=== PATIENT | female | born 1965 | race Caucasian/White ===

== ENCOUNTER 2016-12-20 11:12 | Emergency (ER) | payer OTHER ==
[~2016-12-20] VITALS: Ht 165.1 cm; Wt 149.7 kg
--- NOTE | 2016-12-20 11:30 | ED GI/GU/ABDOMINAL COMPLAINT ---
History of Present Illness General Chief Complaint: Nausea, Vomiting, Diarrhea Stated Complaint: N/V/D X 4 DAYS Source: patient, family, old records Exam Limitations: no limitations Vital Signs & Intake/Output Vital Signs & Intake/Output Vital Signs Date Time Temp Pulse Resp B/P B/P Pulse O2 O2 Flow FiO2 Mean Ox Delivery Rate 12/20 1321 96.1 81 18 132/73 97 Room Air 12/20 1115 96.4 88 20 133/83 96 Room Air Allergies Coded Allergies: citric acid (Intermediate, rash 12/20/16) Penicillins (UNKNOWN 12/20/16) aspirin (bleed 12/20/16) Reconcile Medications Dulaglutide (Trulicity) 0.75 MG/0.5 ML PEN.INJCTR 1 INJ SC QFRI DM (Reported) Hydrochlorothiazide 50 MG TABLET 1 TAB PO QPM WATER RETENTION (Reported) Metoprolol Succinate 100 MG TAB.ER.24H 1 TAB PO QPM HEART (Reported) Ondansetron (Zofran Odt) 4 MG TAB.RAPDIS 1 TAB SL TID PRN NAUSEA Sertraline HCl 25 MG TABLET 1 TAB PO QPM BLOOD THINNER (Reported) Triage Note: PT TO ED C/O N/V/D X 4 DAYS. C/O ABD CRAMPING ON AND OFF. Triage Nurses Notes Reviewed? yes ? N Is pt currently ? No HPI: Patient started with diarrhea on night. Patient states it is watery. There is no blood in it. Patient became nauseous Wednesday afternoon and has vomited a few times. The nausea continues. Patient has been tolerating sips of fluids but nothing to eat. She has crampy epigastric abdominal pain that is nonradiating. The pain is been there since Wednesday afternoon constant. She rates it as 4-10. There is no aggravating or mitigating factors. Patient states that it feels like she is very hungry. Past History Travel History Traveled to [place] past 21 day No Medical History Any Pertinent Medical History? see below for history Cardiovascular: hypertension Endocrine: diabetes Surgical History Surgical History: cholecystectomy Psychosocial History What is your primary language Syriac Tobacco Use: Never used ETOH Use: denies use Illicit Drug Use: denies illicit drug use Family History Hx Contributory? No Review of Systems Review of Systems Constitutional: Reports: no symptoms. EENTM: Reports: no symptoms. Respiratory: Reports: no symptoms. Cardiovascular: Reports: no symptoms. GI: Reports: see HPI, abdominal pain, diarrhea, nausea, vomiting. Genitourinary: Reports: no symptoms. Musculoskeletal: Reports: no symptoms. Skin: Reports: no symptoms. Neurological/Psychological: Reports: no symptoms. Hematologic/Endocrine: Reports: no symptoms. Immunologic/Allergic: Reports: no symptoms. All Other Systems: Reviewed and Negative Physical Exam Physical Exam General Appearance: well developed/nourished, alert, awake, mild distress Head: atraumatic, normal appearance Eyes: Bilateral: PERRL, EOMI. Ears, Nose, Throat, Mouth: hearing grossly normal, DRY MUCOSA Neck: normal inspection, supple, full range of motion Respiratory: normal breath sounds, chest non-tender, no respiratory distress, lungs clear Cardiovascular: regular rate/rhythm, normal peripheral pulses Gastrointestinal: normal bowel sounds, soft, non-tender, no organomegaly Back: normal inspection, normal range of motion Extremities: normal range of motion Neurologic/Psych: no motor/sensory deficits, awake, alert, oriented x 3, normal gait, normal mood/affect Skin: intact, normal color, warm/dry Core Measures ACS in differential dx? No Severe Sepsis Present: No Septic Shock Present: No Progress Differential Diagnosis: AMI, biliary colic, diverticulitis, gastritis, hepatitis , ischemic bowel, inflamm bowel dis, pancreatitis Plan of Care: Orders Procedure Date/time Status Regular Diet 12/20 D Active C.DIFFICILE 12/20 1130 Active TROPONIN LEVEL 12/20 1130 Complete LIPASE 12/20 1130 Complete COMPREHENSIVE METABOLIC PANEL 12/20 1130 Complete CBC WITHOUT DIFFERENTIAL 12/20 1130 Complete AMYLASE 12/20 1130 Complete EKG 12/20 1130 Active Laboratory Tests 12/20/16 1153: Anion Gap 11, Estimated GFR > 60, BUN/Creatinine Ratio 14.3, Glucose 286 H, Calcium 8.2 L, Total Bilirubin 0.6, AST 33, ALT 34, Alkaline Phosphatase 113, Troponin I < 0.01, Total Protein 6.9, Albumin 3.5, Globulin 3.4, Albumin/ Globulin Ratio 1.0 L, Amylase < 30 L, Lipase 43, CBC w Diff NO MAN DIFF REQ, RBC 4.98, MCV 80.0 L, MCH 26.3 L, RDW 16.2 H, MPV 7.0 L, Gran % 77.1 H, Lymphocytes % 14.4 L, Monocytes % 8.0, Eosinophils % 0.4, Basophils % 0.1, Absolute Granulocytes 5.1, Absolute Lymphocytes 0.9 L, Absolute Monocytes 0.5, Absolute Eosinophils 0, Absolute Basophils 0, PUBS MCHC 32.8 L Microbiology 12/20 1130 STOOL: Clostridium difficile Toxin A & B - ORD Initial ED EKG: NSR, no ST T wave changes Comments: Patient was able to eat in the emergency department without difficulty. Patient feels good going home. Departure Departure Disposition: HOME OR SELF CARE Condition: Stable Clinical Impression Primary Impression: Upper abdominal pain, unspecified Secondary Impressions: Diarrhea Qualifiers: Diarrhea type: unspecified type Qualified Code: R19.7 - Diarrhea, unspecified Nausea & vomiting Qualifiers: Vomiting type: unspecified Vomiting Intractability: non-intractable Qualified Code: R11.2 - Nausea with vomiting, unspecified Referrals: FADI LUNA,Malcolm MICHEL (PCP/Family) Additional Instructions: REUTNR IF SYMPTOMS WORSEN OR FOR ANY CONCERNS Departure Forms: Customer Survey General Discharge Information Prescriptions: Current Visit Scripts Ondansetron (Zofran Odt) 1 TAB SL TID PRN NAUSEA #10 TAB
[2016-12-20] MEDS ORDERED: HYDROCHLOROTHIA50 M1 PO (12:00)
[2016-12-20] MEDS ORDERED: METOPROLOL SUC100 M2 PO (12:01)
[2016-12-20] MEDS ORDERED: SERTRALINE HCL25 MG PO (12:01)
[2016-12-20] MEDS ORDERED: TRULICITY0.75 MG/01 SC (12:02)
[2016-12-20 12:14] LABS: ABSOLUTE BASOPHIL COUNT 0 /CUMM (0.0-0.2); ABSOLUTE EOSINOPHIL COUNT 0 /CUMM (0.0-0.7); ABSOLUTE GRANULOCYTE CT 5.1 /CUMM (1.4-6.5); ABSOLUTE LYMPH COUNT 0.9 /CUMM (1.2-3.4); ABSOLUTE MONOCYTE COUNT 0.5 /CUMM (0.10-0.60); BASOPHIL % 0.1 % (0.0-2.0); EOSINOPHIL % 0.4 % (0-5); GRANULOCYTE % 77.1 % (42.2-75.2); HEMATOCRIT 39.8 % (37-47); MEAN CORPUSCULAR HGB 26.3 PG (27.0-31.0); MEAN CORPUSCULAR HGB CONC 32.8 G/DL (33.0-37.0); PLATELET COUNT 267 /CUMM (130-400); RBC DISTRIBUTION WIDTH 16.2 % (11.5-14.5); RED BLOOD CELL CT 4.98 /CUMM (4.20-5.40); WHITE BLOOD CELL COUNT 6.6 /CUMM (4.8-10.8)
[2016-12-20 13:21] VITALS: BP 132/73
[2016-12-20] MEDS ORDERED: ZOFRAN ODT4 M1 SL (14:06)
== END 2016-12-20 14:10 ==
LOC: ERH 11:12
PROVIDERS: Emergency Medicine
DX: R11.2 Nausea with vomiting, unspecified (principal); R19.7 Diarrhea, unspecified; R10.13 Epigastric pain
CPT/HCPCS: 93005; 93010; 96361; 96374; J2405